=== PATIENT | male | born 1945 | race Caucasian/White ===

== ENCOUNTER 2018-01-03 18:15 | Emergency (ER) | payer OTHER ==
[~2018-01-03] VITALS: Ht 165.1 cm; Wt 42.6 kg
[~2018-01-03 18:15] MED LIST: DM H PO
[2018-01-03 18:18] VITALS: BP 116/90
== END 2018-01-03 18:38 | disposition home or self-care (01) ==
LOC: ER 18:17
DX: J11.1 Influenza due to unidentified influenza virus with other respiratory manifestations (principal); G89.29 Other chronic pain
CPT/HCPCS: 99283; A4606; Z7610

== ENCOUNTER 2018-05-04 14:11 | Emergency (ER) | payer OTHER, MEDICAID ==
[~2018-05-04] VITALS: Ht 167.6 cm; Wt 44.5 kg
--- NOTE | 2018-05-04 14:30 | NUR ---
A/OX4, PT IS HERE FOR CONSTIPATION. LAST BM 3 DAYS AGO. ALSO COMPLAINING OF THROAT PAIN WHEN SWALLOWING. NAD VSS WILL CONT TO MONITOR
[2018-05-04 14:48] LABS: BASOPHILS # (AUTO) 0.1 /CMM (0.0-0.2); BASOPHILS % (AUTO) 1.6 % (0.0-2.0); EOSINOPHILS % (AUTO) 1.1 % (0.0-6.0); HEMATOCRIT 31 % (39-51); HEMOGLOBIN 10.5 g/dL (13.5-17.5); LYMPHOCYTES % (AUTO) 20.3 % (20.0-44.0); MEAN CORPUSCULAR HGB CONC 34 g/dl (31.0-36.0); MEAN CORPUSCULAR VOLUME 90 fL (80-96); MONOCYTES # (AUTO) 0.5 /CMM (0.1-1.30); MONOCYTES % (AUTO) 9.6 % (2.0-12.0); NEUTROPHILS # (AUTO) 3.3 /CMM (1.8-8.9); NEUTROPHILS % (AUTO) 67.4 % (43.0-81.0); PLATELET COUNT (AUTO) 367 /CMM (150-450); RDW COEFFICIENT OF VARIATION 11.9 (11.5-15.0); RED BLOOD CELL COUNT(AUTO) 3.41 MIL/uL (4.5-6.0)
[2018-05-04 14:55] LABS: CALCIUM, SERUM 9.2 mg/dL (8.5-10.1); CARBON DIOXIDE 31 mmol/L (21-32); CHLORIDE 98 mmol/L (98-107); CREATININE 0.5 mg/dL (0.6-1.3); GLUCOSE 112 mg/dL (74-106); POTASSIUM 3.9 mmol/L (3.5-5.1); SODIUM SERUM 134 mmol/L (136-145); UREA NITROGEN, BLOOD 29 mg/dL (7-18)
[2018-05-04 16:04] VITALS: BP 124/78
--- NOTE | 2018-05-04 16:04 | NUR ---
Patient discharged to home in stable condition. Written and verbal after care instructions given. Patient verbalizes understanding of instruction.
== END 2018-05-04 16:06 | disposition home or self-care (01) ==
LOC: ER 14:12
DX: J02.9 Acute pharyngitis, unspecified (principal); G89.29 Other chronic pain
CPT/HCPCS: 36415; 71045-TC; 80048-TC; 85025-TC; A4606; Z7610

== ENCOUNTER 2019-02-08 18:47 | Emergency (ER) | payer MEDICARE, MEDICAID ==
[~2019-02-08] VITALS: Ht 162.6 cm; Wt 42.2 kg
[2019-02-08 18:58] VITALS: BP 125/74
--- NOTE | 2019-02-08 19:05 | NUR ---
DR HATFIELD AT BEDSIDE FOR EVAL.
[2019-02-08] MEDS ORDERED: SULFAMETH/TRIMETH 800/160 MG 1 UDTAB TABLET PO ONE ×2 (19:25→19:30)
[2019-02-08] MEDS ORDERED: CEPHALEXIN MONOHYDRATE 500 MG CAPSULE PO ONE ×2 (19:25→19:30)
--- NOTE | 2019-02-08 19:33 | NUR ---
Patient discharged to home in stable condition. Written and verbal after care instructions given. Patient verbalizes understanding of instruction.
== END 2019-02-08 19:34 | disposition home or self-care (01) ==
LOC: ER 18:51
DX: L03.116 Cellulitis of left lower limb (principal); G89.29 Other chronic pain; M54.9 Dorsalgia, unspecified; Z60.2 Problems related to living alone; Z98.890 Other specified postprocedural states
CPT/HCPCS: 99283; A4606